=== PATIENT | male | born 1965 | race Caucasian/White ===

== ENCOUNTER 2017-06-03 00:07 | Observation (INO) | payer MEDICAID, OTHER ==
--- NOTE | 2017-06-03 00:18 | Emergency Department Record ---
History of Present Illness - General Chief Complaint: Palpitations Stated Complaint: PALPITATIONS Time Seen by Provider: 06/03/17 00:07 Source: Patient Mode of Arrival: Ambulatory Limitations: No limitations - History of Present Illness Initial Comments: 52 yo male presents to ED for evaluation of intermittent palpitations for approximately 1 week. Patient reports that his symptoms worsen when driving and "slipping on ice". Patient reports mild-moderate SOB with activity this week as well. Patient denies fevers, chills, or recent illness. Patient denies health problems at his baseline. MD Complaint: Palpitations Onset/Timin -: Week(s) Context: Occurred during rest Associated Symptoms: Denies other symptoms - Related Data Allergies Allergy/AdvReac Type Severity Reaction Status Date / Time Sulfa (Sulfonamide Allergy HIVES Verified 04/08/16 07:17 Antibiotics) Travel Screening - Travel/Exposure Within Last 30 Days Have you traveled within the last 30 days?: No Review of Systems Constitutional: Denies: Chills, Fever, Malaise, Night sweats Eyes: Denies: Eye discharge, Eye pain ENT: Denies: Congestion, Ear pain, Epistaxis Respiratory: Denies: Cough, Dyspnea Cardiovascular: Reports: Dyspnea on exertion, Palpitations. Denies: Chest pain Endocrine: Denies: Fatigue, Heat or cold intolerance Gastrointestinal: Denies: Abdominal pain, Nausea, Vomiting Genitourinary: Denies: Incontinence, Retention Musculoskeletal: Denies: Arthralgia, Back pain, Gout, Joint swelling Skin: Denies: Bruising, Change in color Neurological: Denies: Abnormal gait, Confusion, Headache, Seizure Psychiatric: Denies: Anxiety Hematological/Lymphatic: Denies: Anemia, Blood Clots Past Medical History - SOCIAL HISTORY Smoking Status: Current every day smoker Alcohol Use: None Drug Use: None - RESPIRATORY Hx Respiratory Disorders: No - CARDIOVASCULAR Hx Cardio Disorders: No - NEURO Hx Neuro Disorders: No - GI Hx GI Disorders: No - Hx Genitourinary Disorders: No - ENDOCRINE Hx Endocrine Disorders: No - MUSCULOSKELETAL Hx Musculoskeletal Disorders: No - PSYCH Hx Psych Problems: No - HEMATOLOGY/ONCOLOGY Hx Hematology/Oncology Disorders: No Family Medical History Any Significant Family History?: Yes Hx Cancer: Father Hx Diabetes: Grandparents Physical Exam - General General Appearance: Alert, Oriented x3, Cooperative, Mild distress Limitations: No limitations - Head Head exam: Atraumatic, Normocephalic, Normal inspection Head exam detail: negative: Abrasion, Contusion, Yip's sign, General tenderness, Hematoma, Laceration - Eye Eye exam: Normal appearance. negative: Conjunctival injection, Periorbital swelling, Periorbital tenderness, Scleral icterus - ENT Ear exam: negative: Auricular hematoma, Auricular trauma Nasal Exam: negative: Active bleeding, Discharge, Dried blood, Foreign body Mouth exam: negative: Drooling, Laceration, Muffled voice, Tongue elevation - Neck Neck exam: Normal inspection. negative: Meningismus, Tenderness - Respiratory Respiratory exam: Normal lung sounds bilaterally. negative: Rales, Respiratory distress, Rhonchi, Stridor - Cardiovascular Cardiovascular Exam: Normal rhythm, Normal heart sounds, Irregular rhythm - GI/Abdominal GI/Abdominal exam: Soft. negative: Rebound, Rigid, Tenderness - Rectal Rectal exam: Deferred - exam: Deferred - Extremities Extremities exam: Normal inspection. negative: Calf tenderness, Pedal edema, Tenderness - Back Back exam: Denies: CVA tenderness (R), CVA tenderness (L) - Neurological Neurological exam: Alert, Normal gait, Oriented X3 - Psychiatric Psychiatric exam: Normal affect, Normal mood - Skin Skin exam: Normal color. negative: Abrasion Type of lesion: negative: abrasion Course Vital Signs 06/03/17 00:08 Temperature 98.1 F Pulse Rate 98 H Respiratory 18 Rate Blood Pressure 150/91 Pulse Ox 96 - Reevaluation(s) Reevaluation #1: 06/03/17 00:16 EKG: Atrial Fibrillation 96 Normal axis, Irregular R-R intervals No acute ST-T wave changes No previous Reevaluation #2: 06/03/17 00:44 Labs reviewed and are grossly unremarkable for an acute process. CXR: No acute process Patient was updated on all results, will initiate heparin and admit for cardiology consultation tomorrow. Patient agrees with the plan as discussed. Medical Decision Making - Lab Data Result diagrams: 06/03/17 00:15 06/03/17 00:15 Disposition Disposition: Admit Clinical Impression: Atrial fibrillation Qualifiers: Atrial fibrillation type: unspecified Qualified Code(s): I48.91 - Unspecified atrial fibrillation Disposition: Still a Patient at [facility] [place] Decision to Admit: Admit from ER Decision to Admit Date: 06/03/17 Decision to Admit Time: 00:41 Forms: Patient Portal Access Time of Disposition: 00:41 Quality - Quality Measures Quality Measures: N/A - Blood Pressure Screening Does Patient Have Any of the Following: No Blood Pressure Classification: Hypertensive Reading Systolic Measurement: 150 Diastolic Measurement: 91 Screening for High Blood Pressure: < First Hypertensive BP, F/U Documented > [ G8950] First Hypertensive Follow-up Interventions: Referral to alternative/primary care provider.
[2017-06-03 00:23] LABS: BASO % 0.3 % (0-6); EOS % 1.5 % (0-6); GRAN % 74.4 % (47-80); HEMATOCRIT 51.3 % (42.0-52.0); HEMOGLOBIN 17.6 gm/dl (14.0-18.0); LYMPH % 17.8 % (16-45); MEAN CELL VOLUME 83.4 fl (81-97); MEAN CORPUSCULAR HEMOGLOBIN 28.6 pg (27-33); MEAN CORPUSCULAR HGB CONC 34.3 g/dl (32-36); MEAN PLATELET VOLUME 8.9 fl (7.4-10.4); PLATELET COUNT 354 K/uL (130-400); RED BLOOD COUNT 6.15 M/uL (4.40-5.70); RED CELL DISTRIBUTION WIDTH 14.6 % (11.5-14.5); WHITE BLOOD COUNT W/O DIFF 13.5 K/uL (4.2-12.2)
[2017-06-03 00:35] LABS: BLOOD UREA NITROGEN 23 mg/dL (6-20); CREATININE 0.8 mg/dL (0.7-1.2); EST GLOMERULAR FILTRATION RATE > 60 mL/min; TOTAL PROTEIN 7.5 g/dL (6.6-8.7)
[2017-06-03 00:38] LABS: GLUCOSE,RANDOM 101 mg/dL (74-109)
[2017-06-03 00:40] LABS: ALB/GLOB RATIO 1.3 (1.1-1.8); ALBUMIN 4.3 g/dL (4.0-5.0); ALKALINE PHOSPHATASE 90 U/L (40-129); ALT/SGPT 22 U/L (<41); AST/SGOT 16 U/L (10.0-50.0)
[2017-06-03 00:41] LABS: INR 0.94; PROTHROMBIN TIME (PATIENT) 10.2 SECONDS (9.5-12.1)
[2017-06-03 00:52] LABS: THYROID STIMULATING HORMONE 1.05 uIU/mL (0.270-4.20)
[2017-06-03] MEDS ORDERED: HEPARIN SODIUM/D5W 25,000 UNITS/500 ML BAG IV SCH (01:00)
--- NOTE | 2017-06-03 07:46 | History & Physical ---
History of Present Illness - Date of Service Date of Service for History & Physical: 06/03/17 - History of Present Illness Admitting Diagnosis: New onset atrial fibrillation History of Present Illness: Mr. Rodriguez is a 52 y/o male with no past medical history who presents with a one week history of palpitations and subsequent shortness of breath. The patient says that he works third shift as an solution engineer and noticed that her had intermittent fluttering feelings in his chest during work hours but thought it was due to his heavy caffeine consumption. He says that he stopped drinking coffee last week but symptoms persisted. His symptoms are exacerbated by movement especially when climbing a flight of stairs. The patient went to work this morning and began having the same symptoms so he came into the ED. On arrival to the Ed the patient was noted to be in atrial fibrillation with a rate of 96 and hypertensive. He is admitted for further cardiac monitoring for and workup. He denies chest pain, nausea, vomiting, headaches or syncopal episodes. The patient has not had any prior cardiac events and has not family history of coronary artery disease. He is an active smoker with a 30 pack/yr smoking history. Travel Screening - Travel/Exposure Within Last 30 Days Have you traveled within the last 30 days?: No - Travel/Exposure Within Last Year Have you traveled outside the [place] in the last year?: No - Additonal Travel Details Have you been exposed to anyone with a communicable illness?: No Review of Systems Constitutional: Denies: Chills, Fever, Malaise, Night sweats Eyes: Denies: Eye discharge, Eye pain ENT: Denies: Congestion, Ear pain, Epistaxis Respiratory: Denies: Cough, Dyspnea Cardiovascular: Reports: Dyspnea on exertion, Palpitations. Denies: Chest pain Endocrine: Denies: Fatigue, Heat or cold intolerance Gastrointestinal: Denies: Abdominal pain, Nausea, Vomiting Genitourinary: Denies: Incontinence, Retention Musculoskeletal: Denies: Arthralgia, Back pain, Gout, Joint swelling Skin: Denies: Bruising, Change in color Neurological: Denies: Abnormal gait, Confusion, Headache, Seizure Psychiatric: Denies: Anxiety Hematological/Lymphatic: Denies: Anemia, Blood Clots Past Medical History - SOCIAL HISTORY Smoking Status: Current every day smoker Alcohol Use: Rare Drug Use: None - RESPIRATORY Hx Respiratory Disorders: No - CARDIOVASCULAR Hx Cardio Disorders: No - NEURO Hx Neuro Disorders: No - GI Hx GI Disorders: No - Hx Genitourinary Disorders: No - ENDOCRINE Hx Endocrine Disorders: No - MUSCULOSKELETAL Hx Musculoskeletal Disorders: No - PSYCH Hx Psych Problems: No - HEMATOLOGY/ONCOLOGY Hx Hematology/Oncology Disorders: No Family Medical History Any Significant Family History?: Yes Hx Cancer: Father Hx Diabetes: Grandparents H&P Meds/Allergies - Allergies Allergies: Allergies Allergy/AdvReac Type Severity Reaction Status Date / Time Sulfa (Sulfonamide Allergy HIVES Verified 04/08/16 07:17 Antibiotics) - Active Medications Active Medications: Current Medications Aspirin (Ecotrin (Ec)) 325 mg PO DAILY HALI Heparin Sodium/Dextrose (Heparin Sodium/D5w) 25,000 units in 500 mls @ 29.393 mls/hr IV TITRATE HALI; 12 UNITS/KG/HR PRN Reason: Protocol Last Admin: 06/03/17 02:25 Dose: 12 units/kg/hr, 29.4 mls/hr Physical Exam - Vital Signs Vital Signs: Vital Signs - Last 24 Hrs Temp Pulse Resp BP Pulse Ox 06/03/17 01:48 97.7 F 84 18 121/75 95 06/03/17 01:44 84 18 - General General Appearance: Alert, Oriented x3, Cooperative, Mild distress Limitations: No limitations - Head Head exam: Atraumatic, Normocephalic, Normal inspection Head exam detail: negative: Abrasion, Contusion, Yip's sign, General tenderness, Hematoma, Laceration - Eye Eye exam: Normal appearance. negative: Conjunctival injection, Periorbital swelling, Periorbital tenderness, Scleral icterus - ENT Ear exam: negative: Auricular hematoma, Auricular trauma Nasal Exam: negative: Active bleeding, Discharge, Dried blood, Foreign body Mouth exam: negative: Drooling, Laceration, Muffled voice, Tongue elevation - Neck Neck exam: Normal inspection. negative: Meningismus, Tenderness - Respiratory Respiratory exam: Normal lung sounds bilaterally. negative: Rales, Respiratory distress, Rhonchi, Stridor - Cardiovascular Cardiovascular Exam: Normal heart sounds, Irregular rhythm (paroxyms of atrial irregularity) Peripheral Pulses: 2+: Radial (R), Radial (L), Dorsalis Pedis (R), Dorsalis Pedis (L) - GI/Abdominal GI/Abdominal exam: Soft. negative: Rebound, Rigid, Tenderness - Rectal Rectal exam: Deferred - exam: Deferred - Extremities Extremities exam: Normal inspection. negative: Calf tenderness, Pedal edema, Tenderness - Back Back exam: Denies: CVA tenderness (R), CVA tenderness (L) - Neurological Neurological exam: Alert, Normal gait, Oriented X3 - Psychiatric Psychiatric exam: Normal affect, Normal mood - Skin Skin exam: Normal color. negative: Abrasion Type of lesion: negative: abrasion Results - Labs Result Diagrams: 06/03/17 00:15 06/03/17 00:15 Labs Last 24 Hours: Laboratory Results - last 24 hr 06/03/17 02:23 APTT 31.10 VTE H&P Assessment - Risk for VTE Risk for VTE: No Risk Level: Very Low Risk Assessment Date: 06/03/17 Risk Assessment Time: 10:28 VTE Orders Placed or Will Be Placed: No VTE Reason for No Prophylaxis: Not Indicated Plan - Detailed Diagnosis and Plan (1) Paroxysmal atrial fibrillation Current Visit: Yes Status: Acute Base Code: I48.0 - PAROXYSMAL ATRIAL FIBRILLATION Comment: - ECG: slow a fib, rate 96, no acute ST-T wave abnormalities. - CXR - negative, trops - negative, lytes within normal limits. 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 (2) Tobacco dependence Current Visit: Yes Status: Acute Base Code: F17.200 - NICOTINE DEPENDENCE, UNSPECIFIED, UNCOMPLICATED Comment: - 30+ pack/year smoking hx - counseld on the importance of smoking cessation. (3) Elevated white blood cell count Current Visit: Yes Status: Acute Base Code: D72.829 - ELEVATED WHITE BLOOD CELL COUNT, UNSPECIFIED Comment: - WBCs 1.35, likely reactive (4) DVT prophylaxis Current Visit: Yes Status: Acute Base Code: [id number] - Comment: - currently on heparin drip, d/c drip - no PO anticoagulation at this time. (5) Full code status Current Visit: Yes Status: Acute Base Code: Z78.9 - OTHER SPECIFIED HEALTH STATUS Comment: - FULL CODE - Disposition D/C home today
--- NOTE | 2017-06-03 08:43 | RADIOLOGY REPORT ---
EXAM: CHEST, TWO VIEWS HISTORY: PALPITATIONS FOR THE PAST WEEK. SHORTNESS OF BREATH TODAY. TECHNIQUE: PA and lateral views of the chest were obtained. Comparison: None. FINDINGS: The heart size is normal. The lungs appear expanded with no acute infiltrate seen. No pleural effusion or pneumothorax evident. Mild anterior wedging of the body of what is probably T11, likely chronic and may be developmental. Comparison with any old films would be useful to confirm. Mild pleural thickening or extrapleural lipomatosis laterally bilaterally. IMPRESSION: 1. NO ACUTE INFILTRATE EVIDENT. 2. MILD ANTERIOR WEDGING OF T11 IS LIKELY CHRONIC AND MAY EVEN BE DEVELOPMENTAL. COMPARISON WITH THE OLD FILMS WOULD BE USEFUL. JOB NUMBER: [id number] [facility]
[2017-06-03] MEDS ORDERED: ASPIRIN 325 MG TAB ENTERIC-COATED PO SCH (10:00)
[2017-06-03] MEDS ORDERED: METOPROLOL SUCC 25 MG TAB.ER PO SCH (10:30)
--- NOTE | 2017-06-03 13:01 | Discharge Summary ---
Providers Discharge Summary Date: 06/03/17 Date of admission: 06/03/17 01:18 Expected Date of Discharge: 06/03/17 Attending physician: GRICELDA OREILLY Consults: Consult Orders 06/03/17 07:45 Consult - Cardiology NOW Consulting Provider: NORMA Cardiology Physician Instructions: Reason For Exam: a fib Does pt have current champagne maker?: Not Established Physical Exam - Vital Signs Vital Signs: Vital Signs - Last 24 Hrs Temp Pulse Resp BP Pulse Ox 06/03/17 09:00 84 18 06/03/17 08:00 97.4 F L 18 121/68 95 06/03/17 01:48 97.7 F 84 18 121/75 95 06/03/17 01:44 84 18 - General General Appearance: Alert, Oriented x3, Cooperative, Mild distress Limitations: No limitations - Head Head exam: Atraumatic, Normocephalic, Normal inspection Head exam detail: negative: Abrasion, Contusion, Yip's sign, General tenderness, Hematoma, Laceration - Eye Eye exam: Normal appearance. negative: Conjunctival injection, Periorbital swelling, Periorbital tenderness, Scleral icterus - ENT Ear exam: negative: Auricular hematoma, Auricular trauma Nasal Exam: negative: Active bleeding, Discharge, Dried blood, Foreign body Mouth exam: negative: Drooling, Laceration, Muffled voice, Tongue elevation - Neck Neck exam: Normal inspection. negative: Meningismus, Tenderness - Respiratory Respiratory exam: Normal lung sounds bilaterally. negative: Rales, Respiratory distress, Rhonchi, Stridor - Cardiovascular Cardiovascular Exam: Normal heart sounds, Irregular rhythm (paroxyms of atrial irregularity) Peripheral Pulses: 2+: Radial (R), Radial (L), Dorsalis Pedis (R), Dorsalis Pedis (L) - GI/Abdominal GI/Abdominal exam: Soft. negative: Rebound, Rigid, Tenderness - Rectal Rectal exam: Deferred - exam: Deferred - Extremities Extremities exam: Normal inspection. negative: Calf tenderness, Pedal edema, Tenderness - Back Back exam: Denies: CVA tenderness (R), CVA tenderness (L) - Neurological Neurological exam: Alert, Normal gait, Oriented X3 - Psychiatric Psychiatric exam: Normal affect, Normal mood - Skin Skin exam: Normal color. negative: Abrasion Type of lesion: negative: abrasion Hospitalization - Hospitalization Admission Diagnosis: New onset atrial fibrillation - Problem List/Discharge Diagnosis (1) Paroxysmal atrial fibrillation Current Visit: Yes Status: Acute Base Code: I48.0 - PAROXYSMAL ATRIAL FIBRILLATION Comment: - ECG: slow a fib, rate 96, no acute ST-T wave abnormalities. - CXR - negative, trops - negative, lytes within normal limits. - continuous clinical research monitor showin paroxyms of irregular rhythm - CHADsVasc - 1, d/c heparin drip, start Toprolol XL 25mg QD, ASA 81mg - 2D echo as oupatient to schedule for Thursday, Cardiology consult: recommend beta-sandra with outpatient workup. (2) Tobacco dependence Current Visit: Yes Status: Acute Base Code: F17.200 - NICOTINE DEPENDENCE, UNSPECIFIED, UNCOMPLICATED Comment: - 30+ pack/year smoking hx - counseld on the importance of smoking cessation. (3) Elevated white blood cell count Current Visit: Yes Status: Acute Base Code: D72.829 - ELEVATED WHITE BLOOD CELL COUNT, UNSPECIFIED Comment: - WBCs 1.35, likely reactive (4) DVT prophylaxis Current Visit: Yes Status: Acute Base Code: [id number] - Comment: - currently on heparin drip, d/c drip - no PO anticoagulation at this time. (5) Full code status Current Visit: Yes Status: Acute Base Code: Z78.9 - OTHER SPECIFIED HEALTH STATUS Comment: - FULL CODE - Disposition D/C home today - Hospitalization Course Disposition: Home, Self-Care Hospital Course: Mr. Rodriguez is a 52 y/o male with no past medical history who presents with a one week history of palpitations and subsequent shortness of breath. 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 He says that he stopped drinking coffee last week but symptoms persisted. His symptoms are exacerbated by movement especially when climbing a flight of stairs. The patient went to work this morning and began having the same symptoms so he came into the ED. On arrival to the Ed the patient was noted to be in atrial fibrillation with a rate of 96 and hypertensive. He is admitted for further cardiac monitoring for and workup. He denies chest pain, nausea, vomiting, headaches or syncopal episodes. The patient has not had any prior cardiac events and has not family history of coronary artery disease. He is an active smoker with a 30 pack/yr smoking history. Cardiology evaluated the patient this morning and recommended outpatient workup and starting the patient on a beta sandra. On evaluation this afternoon prior to discharge the patient is in sinus rhythm with a rate of approximately 85 bpm. He has no symptoms on examination and is stable for discharge. 2D echo to be done this Thursday, Jun 05 with follow up in [facility] within 2 weeks and Cardiology specialty clinic thereafter. Procedures: Cardiology Procedures 06/03/17 07:44 Echo W/CF & Cardiac Doppler ONCE 06/05/17 07:00 Echocardiogram 2D - Limited ONCE Condition at Discharge: (1) Good Discharge Diagnosis: Paroxysmal A fib Discharge Medications - Discharge Medications Prescriptions: Aspirin Enteric-Coated [Ecotrin (EC)] 81 mg PO DAILY #30 tabec Metoprolol Succinate [Toprol Xl] 25 mg PO DAILY #30 tab.er.24h Home Medications: Ambulatory Orders Aspirin Enteric-Coated [Ecotrin (EC)] 81 mg PO DAILY #30 tabec 06/03/17 [Last Taken Unknown] Metoprolol Succinate [Toprol Xl] 25 mg PO DAILY #30 tab.er.24h 06/03/17 [Last Taken Unknown] Discharge Plan - Discharge Instructions Activity at Discharge: Increase Activity as Tolerated Diet at Discharge: Regular Diet Quality Measures - Quality Measures Quality Measures: Atrial Fibrillation & Atrial Flutter: Chronic Anticoagulation Therapy, Documentation of Current Medications in Medical Record, Screening for High Blood Pressure and F/U Documented - Current Medications Quality Measure: Measure #130: Documentation of Current Medications Documentation of Current Medications: <Current Medications Documented/Reviewed> [G8427] - Blood Pressure Screening Quality Measure: Screening for High Blood Pressure and Follow-Up Documented Does Patient Have Any of the Following: No Blood Pressure Classification: Hypertensive Reading Systolic Measurement: 150 Diastolic Measurement: 91 Screening for High Blood Pressure: < First Hypertensive BP, F/U Documented > [ G8950] First Hypertensive Follow-up Interventions: Follow-up with rescreen GT 1 day and LT 4 weeks., Lifestyle modifications., Referral to alternative/primary care provider. Lifestyle Modification: Weight Reduction, Dietary Approaches to Stop Hypertension (DASH) Eating Plan, Increased Physical Activity - Atrial Fibrillation and Atrial Flutter Quality Measure: Atrial Fibrillation & Atrial Flutter: Chronic Anticoagulation Therapy Does Patient Have Any of the Following: No CHADS2 Risk Stratification: No Risk Factors Risk Stratification Summary: No risk factors or only one moderate risk factor exists. [G8970] Anticoagulation Therapy: Patient Not Eligible [G8970] - Elder Abuse Suspicion Index EASI Reference Information: Andrés BALLESTEROS, Sg Gong, Lary Ivory, Jean Tariq.Development and validation of a tool to assist physicians identification of elder abuse: The Elder Abuse Suspicion Index (EASI ). Journal of Elder Abuse and Neglect, 2008; 20 (3): 276-300.
--- NOTE | 2017-06-03 15:55 | Medical Records Consult ---
DATE OF CONSULTATION: 06/03/17 INDICATION: ATRIAL FIBRILLATION. HISTORY: Jaxon Rodriguez is a pleasant 52-year-old male who states he has been in excellent health up until about a week ago where he started noticing some palpitations, fluttering in his chest. He noticed some associated shortness of breath when the episodes would occur. No chest discomfort at rest with activity. It is the first time he had any symptoms like this since college, at which time he had some palpitations and was told to cut back on caffeinated beverages. He was never told at the time of his episode in college that he had atrial fibrillation. PAST MEDICAL HISTORY: Questionable hypertension. Tobacco abuse. ALLERGIES: SULFA CAUSES HIVES. MEDICATIONS AT HOME: None. SOCIAL HISTORY: Positive for tobacco. Denies alcohol or illicit drug use. FAMILY HISTORY: Denies any premature history of coronary disease. REVIEW OF SYSTEMS: GENERAL: Denies any fevers, chills, night sweats. HEENT: No acute hearing/vision changes. CARDIOVASCULAR: As above. No chest discomfort. No syncope. PULMONARY: Positive shortness of breath with palpitations. No cough , hemoptysis. GI: No nausea or vomiting. No tarry or bloody stool. : No dysuria or hematuria. ENDOCRINE: No diabetes history. No thyroid history. HEME: No unexplained bruising or bleeding. NEUROMUSCULAR: No strokes or seizure history. PHYSICAL EXAM: VITAL SIGNS: Temperature 97.7. Pulse 84. Blood pressure 121/75. Pulse ox 95% on room air. GENERAL: Alert and in no apparent distress. HEENT: Normocephalic/atraumatic. NECK: Supple. No JVD. No carotid bruits, soft. PULMONARY: Clear to auscultation. No accessory muscle use noted. ABDOMEN: Obese, nontender. Positive bowel sounds. No organomegaly is detected. Exam is limited by obesity. No abdominal bruits are appreciated. EXTREMITIES: No edema. Radial and pedal pulses are grossly intact. No cyanosis of his extremities. CARDIOVASCULAR: Regular rhythm. No murmurs, rubs, gallops. LABORATORY: See EMR. White blood cell 13.5, hemoglobin 17.6, hematocrit 51.3, platelets 354, BUN 23, creatinine 0.8, sodium 140, potassium 4, troponins less than 0.10, AST is 16, ALT 22, TSH 1.05. EKG: EKG shows A-fib. Telemetry, currently when my consultation was done, showed sinus rhythm. ASSESSMENT/PLAN: 1. PAROXYSMAL ATRIAL FIBRILLATION: His CHADS VASc score at most is 1, if in fact he has hypertension. There was only one recording of elevated blood pressure in the hospital. Would recommend placing him on 25 mg of Toprol-XL, ambulating in the hospital, make sure he is feeling okay. He does need an echocardiogram and ischemic work-up, which could be done as an outpatient. We will set him up for an echo on Thursday and then he will be seen back in the office for follow-up. 2. TOBACCO ABUSE: The most important thing he can do at this point is quit smoking. 3. He states he has never had his lipids drawn so those should be checked and can be done through his family doctor's office or our office when he follows up. If recurring A-fib occurs during his hospital stay here and the rate is rapid, I would recommend transfer to [place] to the Electrophysiology Service for further management. JOB NUMBER: [id number] [facility]
== END 2017-06-03 14:10 | disposition home or self-care (01) ==
LOC: ER 00:07 → MEDSURG 01:18
PROVIDERS: ADMIT Internal Medicine; ATTEND Internal Medicine
DX: I48.0 Paroxysmal atrial fibrillation (principal); F17.200 Nicotine dependence, unspecified, uncomplicated; D72.829 Elevated white blood cell count, unspecified
CPT/HCPCS: 71046; 80053; 84443; 84484; 85025; 85610; 85730; 93005; 93010; 96374; 99236; 99285